=== PATIENT | female | born 1965 | race African-American/Black ===

== ENCOUNTER → 2017-09-10 | Outpatient (CLI) | payer BC ==
--- NOTE | 2017-09-10 13:47 | KCIC ---
Bilateral digital screening mammograms: Reason for examination: Routine screening. Comparison is made to previous studies dated back to 09/01/2014. Interpretation was made with the benefit of CAD. The skin and nipples show no abnormalities. No abnormal axillary lymph nodes are seen. The breast parenchyma shows scattered fibroglandular density. (Breast density: Category B.) There appear to be 2 subtle nodular densities at approximately the 12:00 B position of the left breast. Recommend further evaluation with ultrasound. There are no other dominant masses, suspicious calcifications or architectural distortions. Impression: 2 subtle nodular density suggested at the 12:00 B position of the left breast. Recommend further evaluation with ultrasound. BI-RADS Category 0: Incomplete. Ultrasound follow-up is recommended. "Our facility is accredited by the [employer] Mammography [employer]." This patient's information has been entered into a reminder system for the patient to be notified with the results of her examination and a target date for the next mammogram. Electronically signed by: Susan Murguia MD (09/10/2017 1:45 PM) [id number]
== END | disposition home or self-care (01) ==
LOC: KCIC MAMMO 09:38
PROVIDERS: ATTEND Obstetrics & Gynecology
DX: Z12.31 Encounter for screening mammogram for malignant neoplasm of breast (principal)
CPT/HCPCS: G0202; 77067

== ENCOUNTER → 2018-03-27 | Outpatient (CLI) | payer BC | END | disposition home or self-care (01) | LOC: KCIC MAMMO 08:17 | DX: N63.42 Unspecified lump in left breast, subareolar (principal) | CPT/HCPCS: 76641; 77065 ==